=== PATIENT | male | born 1960 | race Caucasian/White ===

== ENCOUNTER 2017-12-29 07:27 | Day surgery (SDC) | payer OTHER ==
[2017-12-29] MEDS ORDERED: LIDOCAINE 1% 2 ML INJ ID PRN (08:14)
[2017-12-29] MEDS ORDERED: LR 1,000 ML IV ONE (08:14)
--- NOTE | 2017-12-29 09:45 | PDHPUP ---
History & Physical Update H&P update statement: This history and physical update is based on an assessment of the patient which was completed after admission or registration (within 24 hours), but prior to the surgery/procedure. H&P update: H&P reviewed & patient examined, no change in patient's condition since H&P completed
[2017-12-29] MEDS ORDERED: OXYCODONE/APAP 5/325 TAB PO PRN (11:12)
[2017-12-29] MEDS ORDERED: HYDROmorphONE/DILAUDID 1 MG/ML INJ IVP PRN (11:12)
[2017-12-29] MEDS ORDERED: HYDROCODONE/APAP 5/325 TAB PO PRN ×2 (11:12→13:32)
[2017-12-29] MEDS ORDERED: NALOXONE HCL 0.4 MG/ML INJ IVP PRN (11:12)
[2017-12-29] MEDS ORDERED: BUPIVACAINE 0.5% 30 ML SDV ONE ×2 (11:12→12:23)
[2017-12-29] MEDS ORDERED: ONDANSETRON 4 MG/2 ML VIAL IVP PRN (11:12)
[2017-12-29] MEDS ORDERED: ACETAMINOPHEN 500 MG TAB PO PRN (11:12)
[2017-12-29] MEDS ORDERED: fentaNYL 100 MCG/2 ML INJ IVP PRN (11:12)
--- NOTE | 2017-12-29 11:13 | PDANEPAE ---
ANE History of Present Illness Melanoma Excision ANE Past Medical History - Cardiovascular History Hx Hypertension: Yes Hx Arrhythmias: No Hx Chest Pain: No Hx Coronary Artery / Peripheral Vascular Disease: No Hx CHF / Valvular Disease: No Hx Palpitations: No Cardiovascular History Comment: WELL CONTROLLED - Pulmonary History Hx COPD: No Hx Asthma/Reactive Airway Disease: No Hx Recent Upper Respiratory Infection: No Hx Oxygen in Use at Home: No Hx Sleep Apnea: No Sleep Apnea Screening Result - Last Documented: Negative - Neurologic History Hx Cerebrovascular Accident: No Hx Seizures: No Hx Dementia: No - Endocrine History Hx Diabetes: No - Renal History Hx Renal Disorders: No - Liver History Hx Hepatic Disorders: No - Neurological & Psychiatric Hx Hx Neurological and Psychiatric Disorders: No - Cancer History Hx Cancer: No Cancer History Comment: MELANOMA - Congenital Disorder History Hx Congenital Disorders: No - GI History Hx Gastrointestinal Disorders: No - Other Health History Other Health History: 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 L WRIST SURG. VASECTOMY. ANKLE FX REPAIR L ANE Review of Systems Review of Systems: - Exercise capacity METS (RN): 5 METS ANE Patient History - Allergies Allergies/Adverse Reactions: No Known Allergies Allergy (Unverified 12/09/17 14:09) - Home Medications Home Medications: Hydrochlorothiazide 12/09/17 [Last Taken Unknown] Lisinopril 12/09/17 [Last Taken Unknown] Multivitamin 12/09/17 [Last Taken Unknown] - NPO status NPO Since - Liquids (Date): 12/29/17 NPO Since - Liquids (Time): 06:00 NPO Since - Solids (Date): 12/28/17 NPO Since - Solids (Time): 21:00 - Smoking Hx Smoking Status: Never smoked - Family Anes Hx Family Hx Anesthesia Complications: NEG ANE Labs/Vital Signs - Vital Signs Blood Pressure: 112/82 Heart Rate: 62 Respiratory Rate: 16 O2 Sat (%): 98 Height: 177.8 cm Weight: 78.925 kg ANE Physical Exam - Airway Neck exam: FROM Mallampati Score: Class 2 Mouth exam: normal dental/mouth exam - Pulmonary Pulmonary: clear to auscultation - Cardiovascular Cardiovascular: regular rate and rhythym - ASA Status ASA Status: II ANE Anesthesia Plan Anesthesia Plan: general endotracheal anesthesia
[2017-12-29] MEDS ORDERED: PROPOFOL/EMULSION 500 MG/50 ML BOTTLE IV ONE (11:16)
[2017-12-29] MEDS ORDERED: fentaNYL 100 MCG/2 ML INJ ONE ×3 (11:18→13:09)
[2017-12-29] MEDS ORDERED: LIDOCAINE 2% 5 ML SDV ONE (11:36)
[2017-12-29] MEDS ORDERED: ceFAZolin 1 GM VIAL ONE ×2 (11:36)
[2017-12-29] MEDS ORDERED: ONDANSETRON 4 MG/2 ML VIAL ONE (11:36)
[2017-12-29] MEDS ORDERED: DEXAMETHASONE 4 MG/ML VIAL ONE (11:36)
[2017-12-29] MEDS ORDERED: BACITRACIN ZINC 14.2 GM OINTTUBE TP ONE (12:37)
[2017-12-29] MEDS ORDERED: ceFAZolin 2 GM/SWFI 2 GM/20 ML SYR IVP ONE (13:32)
[2017-12-29] MEDS ORDERED: LR 1,000 ML IV SCH (14:00)
--- NOTE | 2017-12-29 14:01 | POSTANESTH ---
Post Anesthetic Evaluation Cardiovascular Status: Normal, Stable Respiratory Status: Normal, Stable Level of Consciousness/Mental Status: Can Participate in Eval, Alert and Oriented Pain Control: Adequate, Prn Tx Ordered Nausea/Vomiting Control: Adequate, Prn Tx Ordered Complications Possibly Related to Anesthesia: None Noted
--- NOTE | 2017-12-29 14:05 | POSTOPPROG ---
Post Op Note Date of Operation: 12/29/17 Surgeon: Popeye Green (, FACS) Brass Molder Helper: [place] Urban PAS-3 Anesthesiologist: Zackery Wall DO Anesthesia: GET(General Endotracheal) Pre-op Diagnosis: malignant melenoma, back Procedure: wide excision melanoma, back w/ V-Y advancment flap, SLN bx Findings: 3 sentinel noes right level I axilla neg by frozen Inf/Abcess present in the surg proc area at time of surgery?: No EBL: Minimal (25) Complications: none
[2017-12-29 14:08] VITALS: TEMP 96.6
[2017-12-29 14:40] VITALS: BP 128/86; PULSE 81; RESP 14; O2SAT 97
--- NOTE | 2017-12-29 23:44 | GOP ---
[f rep st] OPERATIVE REPORT DATE OF OPERATION: SURGEON: Popeye Green MD, FACS DISTILLER: LORETTA Vogel3. ANESTHESIA: General endotracheal. ANESTHESIOLOGIST: Zackery Wall DO PREOPERATIVE DIAGNOSIS: Invasive melanoma, upper mid back (Breslow thickness 1.5 mm, status post excisional biopsy). POSTOPERATIVE DIAGNOSIS: Invasive melanoma, upper mid back (Breslow thickness 1.5 mm, status post excisional biopsy). PROCEDURE PERFORMED: 1. Wide excision of upper mid back melanoma. 2. Immediate reconstruction with V-Y advancement flap. 3. Right axillary sentinel lymph node mapping and superficial axillary lymph node dissection. FINDINGS: 1. Wide excision submitted for permanent section. 2. /3 level 1 axillary sentinel nodes negative by frozen section for evidence of metastatic malignancy. Permanent section pending. 1 additional nonsentinel lymph node/axillary tissue submitted for permanent section. DESCRIPTION OF PROCEDURE: After informed consent was obtained, the patient was brought to the operating room and placed under general anesthesia. He was positioned prone. The back was prepped and draped in the usual fashion. Before proceeding, a time-out and identification of the patient was performed. 0.5% Marcaine was used to infiltrate the perimeter of the incision site. A 2 cm excision site was marked on the skin circumferential to the 1 cm circular scar in the upper mid back corresponding to the site of his melanoma excision. He had undergone preoperative injection with technetium-99m radiolabeled microcolloid and a sentinel node did not visualize on lymphoscintigraphy. After the skin was infiltrated, the incision was made with a scalpel and dissection carried out through skin, subcutaneous tissues, and deep subcutaneous fascia into the subcutaneous fat. The remainder of the excision was performed with cautery which was also used for hemostasis. The resultant defect measured approximately 5 x 5 cm in diameter. An inferiorly based V-Y flap was created infiltrating the donor site and incising a V inferior to the defect. This was slightly undermined and liberated from its attachments and rotated cephalad and secured to the upper end of the defect with interrupted 3- 0 Monocryl suture in a deep subcutaneous layer. The donor site was approximated in the subcutaneous layers well and the skin closed circumferentially with interrupted 4-0 and 5-0 Prolene sutures. Upon completion , the V-Y advancement flap appeared well perfused and without unnecessary tension. Topical bacitracin, Xeroform, and sterile dressings were applied. The patient was then placed supine with the right arm extended. Despite the lack of identification of the sentinel node on lymphoscintigraphy, it was felt to be in the right axilla on preoperative gamma detection scan at the bedside. This remained the hottest area of activity with background counts of approximately 25-30. The right axilla was marked with a marking pen for the point of maximum activity, infiltrated with 0.5% Marcaine, and incised transversely. Dissection was carried out through skin, subcutaneous tissues, and superficial axillary fascia. Hemostasis was secured with cautery. The level 1 axillary nodes were inspected with the Neoprobe and the highest counts observed were approximately 1200 counts per minute. Three nodes met criteria for sentinel nodes, 2 of which had counts over a 1000, 1 of which had counts in the 300-400 range. No other nodes in the axilla met criteria and were not clinically suspicious. The 3 nodes were submitted for permanent section. Before submitting the 3rd node, an area of fatty tissue was dissected away from the node that may or may not have contained an additional lymph node. This was submitted as nonaxillary tissue. The wound was inspected for hemostasis, which was secured with cautery and hemoclips. Subcutaneous tissues were approximated with 3-0 Monocryl suture. Skin was closed with 4-0 Monocryl suture in a subcuticular fashion. The pathologist subsequently reported no evidence of metastatic melanoma within the sentinel nodes on frozen section. Topical sterile dressings were applied. The patient was returned to the recovery room extubated in satisfactory condition. Needle, sponge, and instrument count were correct. Estimated blood loss was 25 mL. Complications none. /[id number]/MODL MTDD
== END 2017-12-29 15:28 | disposition home or self-care (01) ==
LOC: FSGY 07:27
PROVIDERS: ATTEND Surgery
PROC: 0HX6XZZ Transfer Back Skin, External Approach (ICD-10-PCS; principal; 2017-12-29 10:15)
PROC: 07B50ZZ Excision of Right Axillary Lymphatic, Open Approach (ICD-10-PCS; principal; 2017-12-29 10:15)
PROC: 0HB6XZZ Excision of Back Skin, External Approach (ICD-10-PCS; principal; 2017-12-29 10:15)
PROC: 3E0W3HZ Introduction of Radioactive Substance into Lymphatics, Percutaneous Approach (ICD-10-PCS; 2017-12-29 10:15)
DX: C43.59 Malignant melanoma of other part of trunk (principal); G71.0 Muscular dystrophy; C44.519 Basal cell carcinoma of skin of other part of trunk
CPT/HCPCS: 14301; 38525; 78195; A9520; J0690; J1100; J2405; J2704; J3010

== ENCOUNTER → 2019-01-17 | Outpatient (CLI) | payer OTHER | LOC: BMCIMAGING 14:48 | PROVIDERS: ATTEND Family Medicine | DX: M79.89 Other specified soft tissue disorders (principal); Z87.81 Personal history of (healed) traumatic fracture ==